=== PATIENT | female | born 1970 | race Caucasian/White ===

== ENCOUNTER 2017-06-18 21:20 | Observation (INO) ==
[2017-06-18 22:12] LABS: BASO% 0.5 % (0.0-0.8); EOS% 1.6 % (0.0-10.0); HEMATOCRIT 23.4 % (37.0-47.0); HEMOGLOBIN 6.1 g/dL (12.0-16.0); IMM GRAN# 0.03 X1000 (0.0-0.04); IMM GRAN% 0.2 % (0.0-0.5); LYMPH# 3.62 X1000 (1.2-3.4); LYMPH% 29.7 % (20.5-51.1); MANUAL DIFF NEEDED? NO; MCH 16.7 PG (27-31); MCHC 26.1 g/dL (33-37); MCV 63.9 FL (81-99); MONO# 1.26 X1000 (0.11-0.59); MONO% 10.4 % (1.7-9.3); MPV 10.4 FL (7.4-10.4); NEUT% 57.6 % (42.2-75.2); PLT 325 X1000 (130-400); RBC 3.66 XMIL (4.2-5.4)
[2017-06-18 22:30] LABS: AGAP 12; ALBUMIN 4.3 g/dL (3.5-5.0); ALKALINE PHOSPHATASE 92 U/L (32-104); BUN 17 mg/dL (8-22); CALCIUM 9.4 mg/dL (8.8-10.2); CHLORIDE 105 mmol/L (98-107); COSMO 281; GOT 18 U/L (10-30); GPT 14 U/L (10-36); POTASSIUM 3.6 mmol/L (3.5-5.1); SODIUM 140 mmol/L (136-145); TCO2 23 mmol/L (25-35); TOTAL BILIRUBIN 0.25 mg/dL (0.20-1.00); TOTAL PROTEIN 7.5 g/dL (6.3-8.3)
[2017-06-18] MEDS ORDERED: TYLENOL PO ONE (22:40)
--- NOTE | 2017-06-18 22:44 | PROVIDER DOCUMENTATION ---
This chart was entered by Nena Nam Scribe, acting as scribe for Evelio Parnell MD. HPI-General Adult - General Chief Complaint: Abnormal Lab[s] Stated Complaint: ABNORMAL LABS Time Seen by Provider: 06/18/17 21:29 Source: patient Allergies/Adverse Reactions: Patient Allergies Allergy/AdvReac Type Severity Reaction Status Date / Time No Known Allergies Allergy Verified 06/18/17 22:04 Home Medications: Home Medication List Medication Instructions Recorded Confirmed Last Taken Type Amlodipine Besylate 10 mg PO DAILY 06/18/17 06/18/17 06/18/17 History Clonidine [Catapres] 0.2 mg PO BID 06/18/17 06/18/17 06/18/17 History Fluoxetine [Prozac] 20 mg PO DAILY 06/18/17 06/18/17 06/18/17 History Ranitidine [Zantac] 150 mg PO DAILY 06/18/17 06/18/17 06/18/17 History - History of Present Illness -Gen Adult Nature of Presenting Problems: 46 Y/O F presents to ED with Abnormal Lab. Pt states that she had blood work done in longterm. Pt states that she's been there for 2 years. Pt denies black, bloody BM's. Pt believes she's going through menopause. Pt states that's been bleeding nonstop for about 2 years. Pt states mild dizziness. Pt stats she recently stopped bleeding last month. Pt states 2-3 days of spotting and then full blown period. Location of Pain/Injury: reports: generalized Pain Radiation: reports: no radiation Quality of Pain: reports: aching Severity: reports: moderate Onset/Duration: reports: this evening Timing: reports: still present Context/Activities at Onset: reports: none Modifying Factors: improves with: nothing Associated Symptoms: reports: dizziness (mild), genitourinary problems Similar Symptoms Previously?: No Recently seen or treated by another doctor?: Yes Review of Systems - Adult - REVIEW OF SYSTEMS - ADULT Constitutional: denies: chills, fever Eyes: reports: no symptoms reported Ears, Nose, Mouth & Throat: reports: no symptoms reported Cardiovascular: reports: no symptoms reported Respiratory: reports: no symptoms reported Gastrointestinal: reports: no symptoms reported Genitourinary: reports: hematuria. denies: dysuria, discharge Musculoskeletal: reports: no symptoms reported Integumentary: reports: no symptoms reported Neurological: reports: dizziness/vertigo Psychiatric: reports: no symptoms reported Endocrine: reports: no symptoms reported Hematologic/Lymphatic: reports: no symptoms reported Allergic/Immunologic: reports: no symptoms reported All Other Systems: Reviewed and Negative Past History - Adult - PAST MEDICAL HISTORY-ADULT Review of Records: reports: Old Records Reviewed, Nursing Assessment Review, Medications Reviewed, Social history reviewed & non-contributory. - SOCIAL HISTORY Smoking: cigar, less than 1 pack/day Living Situation: other (longterm) Physical Exam-General - CONSTITUTIONAL General Appearance: alert, no apparent distress - EYES Eyes: pale conjunctivae - HEAD, EARS, NOSE, MOUTH & THROAT HENMT: normocephalic/atraumatic, normal ENT inspection, TMs normal, pharynx normal - NECK Neck: non-tender, full range of motion, supple, normal inspection - RESPIRATORY Respiratory: chest non-tender, lungs clear, normal breath sounds - CARDIOVASCULAR Cardiovascular: normal peripheral pulses, regular rate, rhythm - GASTROINTESTINAL (ABDOMEN) Abdominal Exam: normal bowel sounds, non tender, soft - LYMPHATIC Lymphatic: no adenopathy - MUSCULOSKELETAL Back Exam: normal inspection, no CVA tenderness, no vertebral tenderness Extremity: normal range of motion, non-tender - SKIN Integumentary: normal color, normal turgor - NEUROLOGIC Neurologic: grossly normal - PSYCHIATRIC Psych/Mental Status: normal mood/affect, normal thought content, normal thought process, oriented x 3 Progress - PLAN OF CARE/RESULTS Progress/Plan/Lab Results: Vital Signs - 8 hr 06/18/17 21:23 Temperature 97.9 F Pulse Rate 92 H Respiratory Rate 18 Blood Pressure 150/85 O2 Sat by Pulse Oximetry 100 Laboratory Results - last 24 hr 06/18/17 21:55 WBC 12.17 H RBC 3.66 L Hgb 6.1 L Hct 23.4 L MCV 63.9 L MCH 16.7 L MCHC 26.1 L RDW Std Deviation 20.1 H Plt Count 325 MPV 10.4 Immature Gran % (Auto) 0.2 Neut % (Auto) 57.6 Lymph % (Auto) 29.7 [facility] % (Auto) 10.4 H Eos % (Auto) 1.6 Baso % (Auto) 0.5 Immature Gran # (Auto) 0.03 Neut # (Auto) 7.00 H Lymph # (Auto) 3.[address] [place] [facility] # (Auto) 1.26 H Eos # (Auto) 0.20 Baso # (Auto) 0.06 Orders Category Date Time Status CBC WITH ELECTRONIC DIFF [HEME] Stat Lab 06/18/17 21:55 Completed CMP [COMPREHENSIVE METABOLIC PANEL] [CHEM] Stat Lab 06/18/17 21:55 Received Result Diagrams: 06/18/17 21:55 06/18/17 21:55 Departure - Departure Date of Disposition Decision: 06/18/17 Time of Disposition Decision: 22:41 DIAGNOSIS: Anemia Qualifiers: Iron deficiency anemia type: chronic blood loss Disposition: ADMITTED INPATIENT 09 Certified Medical Emergency: Emergent Condition: Good Referrals and Follow-Ups: None,PCP [Primary Care Provider] - Discharge Education: Smoking, You Can Quit, [id number] - Critical Care Note This patient required my direct & personal management of CC.: No Attestation - Physician/ FRANCHESKA Attestation Patient care was provided by Advanced Practice Provider:: No The physician spent face to face time with patient:: Yes Advanced Practice Provider documentation review:: Supervising physician onsite and consulted in the evaluation and care of this patient. The physician did have a face to face encounter with the patient. This chart was documented by the indicated scribe, (Nena Nam Scribe) and accurately reflects the services I performed and decisions made by me, Evelio Parnell MD, as attested by the provider's signature.
[2017-06-18] MEDS ORDERED: NS 500 ML ONE (23:44)
[2017-06-19] MEDS ORDERED: ZOFRAN IV PRN (01:53)
[2017-06-19] MEDS ORDERED: TYLENOL PO PRN (01:53)
--- NOTE | 2017-06-19 07:22 | HISTORY AND PHYSICAL ---
CHIEF COMPLAINT: Abnormal labs, weakness, and uterine bleeding. HISTORY OF PRESENT ILLNESS: This is a 46-year-old female who is a prisoner. I think she has been in care home for the last 2 years. She had some blood work done at the care home which showed low hemoglobin and hematocrit, and she was sent over for evaluation. Hemoglobin and hematocrit were low, confirmed here. Placed in observation for symptomatic anemia. She does report vaginal bleeding that has been pretty much steady for 2 years. She had not had a workup, although she states that before, she had seen a LEAD INSPECTOR before she went to care home. They said it was likely perimenopausal. She has some mild dizziness. She said she stopped bleeding last month and then again started having to 2-3 days of bleeding, and then another significant bleeding today. Again, workup confirmed anemia with a hemoglobin and hematocrit of 6 and 23. She was placed in observation for symptomatic anemia. PAST MEDICAL HISTORY: 1. Hypertension. 2. Chronic anxiety. PAST SURGICAL HISTORY: She has had a . FAMILY HISTORY: No cancers. Mother had a history of DVTs and I think a CAD. SOCIAL HISTORY: She does smoke about half a pack a day. No alcohol. No drugs. ALLERGIES: No known drug allergies. REVIEW OF SYSTEMS: She has lost about 10 pounds in the last 4 months. No chest pain. No palpitations. Chronic dyspnea. Otherwise negative times a 10 point review of systems. PHYSICAL EXAMINATION: VITAL SIGNS: Blood pressure 123/81, heart rate of 69, respiratory rate of 15, temperature 97.9 degrees, 95% on room air. GENERAL: A well-developed female, in no acute distress. HEENT: Head examination: Normocephalic and atraumatic. Eye examination: Pupils equal, round, and reactive to light. Extraocular movements were intact. Ears, nose, and throat examination: She had moist mucous membranes. NECK: Supple. CARDIOVASCULAR: Regular rate and rhythm. PULMONARY: Bilateral breath sounds clear to auscultation. GI: Soft, nontender, nondistended. Bowel sounds were positive. EXTREMITIES: No clubbing or cyanosis. LYMPHATICS: No peripheral edema. NEUROLOGICAL: Examination was nonfocal. LABORATORY DATA: White count 12, hemoglobin and hematocrit 6 and 23, MCV of 63. CMP was negative. Laboratory data as described. ASSESSMENT: This is a 46-year-old female with a history of symptomatic anemia and dysfunctional uterine bleeding. 1. Symptomatic anemia. We will transfuse 2 units of blood. Check her reticulocyte count, iron stores, ferritin, and B12 levels, and follow. I think she has chronic blood loss related to her dysfunctional uterine bleeding. 2. Dysfunctional uterine bleeding. She may have some perimenopausal bleeding but 2 years straight of bleeding, there is concern of an endometrial abnormality including endometrial cancer. We will pursue a pelvic ultrasound tomorrow and an PATIENT TRANSITION SPECIALIST consult. DISPOSITION: Pending her workup and improvement in her hemoglobin and hematocrit. cc: Chapin Quinones MD
[2017-06-19] MEDS: PROZAC PO SCH (08:24)
[2017-06-19] MEDS: CATAPRES PO SCH ×2 (08:24→21:26)
[2017-06-19] MEDS: NORVASC PO SCH (08:24)
[2017-06-19] MEDS: ZANTAC PO SCH (08:24)
[2017-06-19 08:39] LABS: RETIC% 2.38 % (0.8-2.1); RETIC-HE 16.4 PG (28.2-36.6)
[2017-06-19 08:50] LABS: IRON SATURATION 3 %; TIBC 437 ug/dL; TOTAL IRON 11 ug/dL (49-151); UNBOUND IRON 426 ug/dL (112-346)
[2017-06-19 10:35] LABS: HEMATOCRIT 28.6 % (37.0-47.0); HEMOGLOBIN 8.1 g/dL (12.0-16.0); MCH 19.1 PG (27-31); MCHC 28.3 g/dL (33-37); MCV 67.3 FL (81-99); MPV 9.8 FL (7.4-10.4); RBC 4.25 XMIL (4.2-5.4)
--- NOTE | 2017-06-19 15:57 | PROGRESS NOTE ---
DATE: 06/19/2017 Dr. Hendricks in Gynecology evaluated Ms. Busch. At present she is having no further bleeding. She states she feels much better after having blood transfusion. Pelvic ultrasound was ordered. Dr. Hendricks discussed the importance of followup in his office for Pap smear, pelvic, and a further evaluation which will be arranged on discharge. We will continue to trend her labs. At 10 o'clock today her hemoglobin is up to 8.1 from 6.1, hematocrit is 28.6 up from 23.4. Dictated by MOSES Puentes for Jose Guzman MD cc: MOSES Puentes MD
--- NOTE | 2017-06-19 19:07 | CONSULTATION ---
DATE OF CONSULTATION: 06/19/2017 REASON FOR CONSULTATION: Anemia. SUMMARY: Hai Busch is a 46-year-old, 3, para 3, who is an inmate at the [facility]. She states that it has been many years since she has had a gynecologic examination. She states that she bled constantly for 2 years. The bleeding stopped a month ago. Due to generalized weakness she had blood work done which showed anemia. Her initial hemoglobin and hematocrit was 6.1/23.4 with a platelet count of 325,000. After 2 units of blood her numbers are 8.1/28.6 and platelet count of 269,000. She denies any pain or other problems. PAST MEDICAL HISTORY: She has no history of chronic medical or surgical illnesses. She had 2 vaginal deliveries followed by section. She had a tubal sterilization procedure. PHYSICAL EXAMINATION: General: She is a well-developed, well-nourished female. Vital Signs: Stable and she is afebrile. Abdomen: Nontender. I could not feel any masses. IMPRESSION: 1. Menorrhagia. 2. Anemia. PLAN: I am going to check an FSH and LH. I would like to know what her hormonal status is. I will also get a pelvic ultrasound and I would like to get her to my office for a Pap smear and pelvic examination. cc: Larry Hendricks MD
[2017-06-20 06:50] LABS: HEMATOCRIT 29.2 % (37.0-47.0); MCH 18.8 PG (27-31); MCHC 27.4 g/dL (33-37); MCV 68.7 FL (81-99); MPV 10.8 FL (7.4-10.4); RBC 4.25 XMIL (4.2-5.4)
[2017-06-20 06:52] LABS: AGAP 10; ALBUMIN 3.3 g/dL (3.5-5.0); ALKALINE PHOSPHATASE 94 U/L (32-104); BUN 12 mg/dL (8-22); CALCIUM 8.3 mg/dL (8.8-10.2); CHLORIDE 108 mmol/L (98-107); COSMO 279; GOT 18 U/L (10-30); GPT 14 U/L (10-36); POTASSIUM 3.7 mmol/L (3.5-5.1); SODIUM 140 mmol/L (136-145); TCO2 23 mmol/L (25-35); TOTAL PROTEIN 6.5 g/dL (6.3-8.3)
[2017-06-20 08:20] VITALS: BP 124/74
[2017-06-20] MEDS: ZANTAC PO SCH (08:48)
[2017-06-20] MEDS: NORVASC PO SCH (08:48)
[2017-06-20] MEDS: CATAPRES PO SCH (08:48)
[2017-06-20] MEDS: PROZAC PO SCH (08:49)
--- NOTE | 2017-06-20 10:51 | Diag Imaging Result Doc PS360 ---
EXAM: US PELVIC NON-ARMATURE REWINDER COMPLETE HISTORY: dub TECHNIQUE: Endovaginal examination with color Doppler. COMPARISON: 11/30/2013 FINDINGS: This examination was performed portably. The uterus measures 9 x 5 x 4 cm. The endometrium measures 6 mm. No focal masses are appreciated. There is no free fluid within the cul-de-sac. There is bilateral ovarian blood flow. IMPRESSION: No acute abnormalities are appreciated. Electronically signed by Janny Mcdaniels 06/20/2017 10:49 AM
--- NOTE | 2017-06-20 17:25 | PROGRESS NOTE ---
DATE: 06/20/2017 ADDENDUM: Patient seen and examined, full note dictated by nurse practitioner. Patient states she is feeling much better today. She has had no further bleeding, no further issues. She has been able to ambulate through the grubbs without any difficulty. She is asking to go home. On physical exam, she is awake, alert, oriented. She is in no respiratory distress. She is feeling better. We will discharge patient home this afternoon. She will follow up outpatient with PATIENT CARE SECRETARY of her choice for further treatment possibilities. On discharge her hemoglobin and hematocrit is 8 and 29. cc: Jose Guzman MD
--- NOTE | 2017-06-21 14:34 | DISCHARGE SUMMARY ---
ADMISSION DATE: 06/18/2017 DISCHARGE DATE: 06/20/2017 DIAGNOSES: 1. Symptomatic anemia. 2. Menorrhagia. CONSULT: Dr. Larry Hendricks, gynecology. DIAGNOSTICS: Pelvic ultrasound which revealed uterus measures 9 x 5 x 4 cm, endometrium measures 6 mm. No focal masses are appreciated. There is no free fluid within the cul-de-sac. There is bilateral ovarian flow, no acute abnormalities are appreciated. HOSPITAL COURSE: Ms. Busch presented to the emergency room from the [facility] having heavy periods over the last 2-3 years. She had labs drawn which showed a low hemoglobin and hematocrit. Therefore she was sent to the emergency room and repeat labs revealed a hemoglobin of 6 and hematocrit 23. She states that during the 2 years she has been in penitentiary that she has had a pretty much steady vaginal bleeding as well as heavy periods all her life. She states that it has been quite some time since she has seen by tube filler. She did state over the past 2-3 days she was having some mild dizziness on standing and if she tried to go upstairs she would get short of breath and have to rest. She was transfused 2 units of packed cells and her hemoglobin, hematocrit actually increased to it has been 8.1 and 28.6 on the and on the 8 and 29.2. She denies any vaginal bleeding at present. We did pelvic ultrasound was performed which revealed no abnormalities detail as stated above. The vital signs have remained stable. She has been afebrile. Today thankfully she is improved, her labs are stable and she is ready to be discharged. PHYSICAL EXAMINATION: Cardiovascular: Regular rate and rhythm. S1 and S2 appreciated. Pulmonary: Breath sounds are clear with no increased work of breathing noted. Gastrointestinal: Abdomen soft, nontender, nondistended. Bowel sounds in all 4 quadrants. Extremities: No clubbing, cyanosis or edema. Pulses are palpable x4 and calves are nontender. Neurologic: She is alert and oriented x3. Vital Signs: Blood pressure is 124/74, heart rate of 55, respirations are 18, temperature is 97.4 degrees with room air saturations of 99%. DISCHARGE MEDICATIONS: Zantac 150 p.o. daily, Norvasc 10 daily, Prozac 20 daily, clonidine 0.2 b.i.d. DISCHARGE FOLLOW UP: She needs to see Dr. Larry Hendricks for Pap smear and pelvic exam. This will be scheduled per the detention. She is being discharged back to detention with law enforcement in stable condition. TIME SPENT: This is a greater than 30 minute discharge. Dictated by MOSES Puentes for Jose Guzman MD cc: MOSES Puentes MD
== END 2017-06-20 12:45 ==
LOC: P.MEDSURG 21:20 → ED 21:20 → SUATTDRO 23:31
PROVIDERS: ATTEND Family Medicine